=== PATIENT | male | born 1945 | race Caucasian/White ===

== ENCOUNTER 2018-01-31 06:46 | Day surgery (SDC) | payer MEDICARE ==
[2014-10-14 08:40] VITALS: BMI 31.6
[2018-01-31] MEDS ORDERED: Lidocaine 2% MPF (5 ml) Inj ONE (09:08)
[2018-01-31] MEDS ORDERED: Bupivacaine 0.25% 20 ML INJ IJ ONE ×2 (09:08→09:38)
[2018-01-31] MEDS ORDERED: ceFAZolin 1 gm FROZEN Premix 1 GM/50 ML ML IVPB ONE (09:10)
[2018-01-31] MEDS ORDERED: Midazolam 2 MG/2 ML VIAL ONE ×3 (09:19→09:40)
[2018-01-31] MEDS ORDERED: Bacitracin Ointment 30 GM TUBE ONE (09:22)
[2018-01-31] MEDS ORDERED: Etomidate 20 mg/10ml Inj IV ONE (09:23)
[2018-01-31] MEDS ORDERED: Propofol 10 mg/ml Inj (20 ML) ONE (09:41)
[2018-01-31] MEDS ORDERED: HYDROmorphone 0.5 mg/0.5 ml ISec IVP PRN (10:39)
[2018-01-31] MEDS ORDERED: Oxycodone/Acetaminophen 5/325 mg Tab PO PRN ×2 (11:10)
--- NOTE | 2018-01-31 11:16 | PCM.SURG1 ---
Surgeon's Initial Post Op Note - Surgeon's Notes Surgeon: Dr. Mike DPM Soil Sampler: Dr. Susana DPM Type of Anesthesia: General IV, Spinal Anesthesia Administered By: Dr. Carrera Pre-Operative Diagnosis: Left foot Bunion Operative Findings: see dictation. I: pre-operative 20 cc 1:1 2% Lidocaine plain, 0.25% Marcaine plain, intraoperative 10 cc 0.25% Marcaine plain. M: 2-0 Chromic, 3-0 Chromic, 4-0 Nylon Post-Operative Diagnosis: same Operation Performed: Left Foot 1st MTPJ arthroplasty Specimen/Specimens Removed: none Estimated Blood Loss: EBL {In ML}: 5 Blood Products Given: N/A Drains Used: No Drains Post-Op Condition: Good Date of Surgery/Procedure: 01/31/18 Time of Surgery/Procedure: 11:16
[2018-01-31 11:53] VITALS: O2SAT 100
[2018-01-31 13:13] VITALS: BP 157/90; PULSE 77; RESP 18; TEMP 97
--- NOTE | 2018-01-31 13:14 | RAD ---
Date of service: 01/31/2018 PROCEDURE: Left Foot Radiographs. HISTORY: s/o left foot surgery COMPARISON: 10/17/2014 FINDINGS: BONES: Interval resection - 1st metatarsal head. Interval osteotomy 1st proximal phalanx. The medial sesamoid bone is less clearly seen on this exam - it is probably superimposed on the 1st metatarsal head. The lateral sesamoid is laterally positioned relative to the 1st metatarsal head. Periosteal reaction to suggest a osteomyelitis seen. Os peroneum. JOINTS: Osteoarthrosis tibiotalar and mid tarsal bones. An 1st metatarsal-phalangeal joint. SOFT TISSUES: Normal. OTHER FINDINGS: Inferior calcaneal spur . [place]'s tendon insetional enesthesophyte. IMPRESSION: Interval surgical changes 1st digit as above. Other findings as above.
--- NOTE | 2018-02-01 07:34 | OP ---
PROCEDURE DATE: 01/31/2018 PREOPERATIVE DIAGNOSIS: Left foot bunion. POSTOPERATIVE DIAGNOSIS: Left foot bunion. PROCEDURES: 1. Arthroplasty, left first metatarsal. 2. of the proximal phalanx of left hallux. SURGEON: David Martinez DPM OCCUPATIONAL HEALTH PHYSIOTHERAPIST: Jo Meza DPM, PGY-1 ANESTHESIOLOGIST: Dr. Carrera. ANESTHESIA: IV sedation with local. INDICATION: The patient is a 72-year-old male with the above diagnoses. The patient has exhausted all conservative treatment at this time, now requests surgical intervention. The patient signed consent after careful explanation of risks, benefits, complications, alternatives for surgical procedure, no guarantees were given nor implied. The patient was brought into the operating room and placed on the operating room table in a supine position. A time-out was performed for identification of the correct patient and procedure. The patient received a total of 30 mL of 1:1 mixture of 2% lidocaine plain and 0.25% Marcaine plain in a Melendez block and a local block fashion to the left foot . Once local anesthesia was achieved, the left foot was then prepped and draped in a normal sterile manner. PROCEDURE 1: Attention was then brought to the dorsal aspect of the first metatarsal head, left foot, when approximately 6 cm linear and longitudinal incision was made medial and proximal to the tendon of the extensor hallucis longus and involved the contour of the deformity. The incision was deepened through the subcutaneous tissue. Care was taken to identify and retract all vital neurovascular structures. All bleeders were cauterized and ligated as directed. At this time, a linear type capsulotomy was performed over the dorsal aspect of the first metatarsophalangeal joint with the use of a needle tip Bovie. The periosteal and capsular structures were then carefully dissected free of the osseous attachments both medially and laterally exposing the head of the first metatarsal and reached the operative site. Next utilizing a sagittal saw, medial prominence was resected and passed from the operative field. Correction of the deformity was noted to be excellent. Via the original incision, the periosteal and capsular structures were reflected medially and laterally exposing the base of the proximal phalanx to the operative site. Next, utilizing a sagittal saw, both dorsal to plantar proximal osteotomy was created. In the proximal phalanx of the left hallux, a wedge resected and passed from the operative field. A more distal aspect of the bone was closed proximally and compression was noted. The surgical site was then flushed with copious amounts of normal saline solution with hydrogen peroxide. The periosteal and capsular structures were then reapproximated using 2-0 chromic gut. Redundant capsular tissue was resected as necessary. The subcuticular tissues were then reapproximated using 3-0 chromic gut. The skin was then reapproximated and coapted using 4-0 nylon using . The surgical site was then dressed with Xeroform, 4 x 4, gauze, Kerlix. POSTOPERATIVE CONDITION: The patient tolerated the anesthesia and procedure well. He was escorted to the recovery room with vital signs stable and neurovascular status intact to the left foot. The patient will remain nonweightbearing in a surgical shoe with a walker and will follow up with Dr. Martinez in his office. Jo Meza MD David Martinez DPM
== END 2018-01-31 13:18 | disposition left against medical advice (07) ==
LOC: C.SDS 06:46
PROVIDERS: ATTEND Podiatrist Foot Surgery
DX: M21.612 Bunion of left foot (principal)
CPT/HCPCS: 28270; 28296; 73630; 82948; 88304; 97116; 97161; C1713; G0480; G8978; G8979; G8980; J0690; J2250; J2704; J3010

== ENCOUNTER 2018-08-07 07:18 | Day surgery (SDC) | payer MEDICARE, MEDICAID ==
[2018-08-01 08:14] VITALS: BMI 28.8
[2018-08-07 08:21] VITALS: O2SAT 100
[2018-08-07] MEDS ORDERED: ceFAZolin 1 gm in NS 1 GM/100 ML BAG IVPB ONE (08:52)
[2018-08-07] MEDS ORDERED: Bupivacaine HCl 0.25% PF (10 ml) Inj ONE ×3 (08:53→09:41)
[2018-08-07] MEDS ORDERED: Propofol 10 mg/ml Inj (20 ML) ONE (09:09)
[2018-08-07] MEDS ORDERED: Midazolam 2 MG/2 ML VIAL ONE ×2 (09:09→09:55)
[2018-08-07] MEDS: Lidocaine Hydrochloride 10 ML INJ ONE ×2 (09:15→09:20)
[2018-08-07] MEDS ORDERED: Lidocaine Hydrochloride 0 ML INJ ONE (09:45)
[2018-08-07] MEDS ORDERED: Oxycodone/Acetaminophen 5/325 mg Tab PO PRN ×2 (10:38)
--- NOTE | 2018-08-07 10:43 | CP.SDSHP ---
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 Evaluated Today:Candidate for Anesthesia & Procedure: Yes - Date & Time Date: 08/07/18 Time: 10:42 Short Stay Discharge - Short Stay Discharge Admitting Diagnosis/Reason for Visit: HALLUX VALGUS LEFT FOOT Disposition: HOME/ ROUTINE Additional Instructions (Diet, Activity): -Patient in good/stable condition for discharge home -Pt to resume medications per medical reconciliation -Resume regular diet -Please keep dressing clean, dry, & intact to surgical site -Use plastic bag over bandage for showering -Wear post op shoe at all times when ambulating -Call clinic if you see signs of infection (redness, swelling, malodor) -Please make an appointment to see Dr. Mckeon in office/clinic within 1 week for post-op check Progress Note/Discharge Note with Instructions: - Patient evaluated bedside in recovery s/p right foot bunionectomy. - After surgical procedure patient in NAD - (+) Void, (+) Appetite - Capillary refill time <3s and NVS intact. - Patient denies complaints at this time. - Post operative instructions and plan of care explained to patient at length. - Patient. acknowledges verbal understanding. - Patient stable for DC per podiatric surgery
--- NOTE | 2018-08-07 10:46 | PCM.SURG1 ---
Surgeon's Initial Post Op Note - Surgeon's Notes Surgeon: Dr. Mckeon DPM Go Go Dancer: Dr. Delacruz PGY1 Dr. Meza PGY1 Type of Anesthesia: IV Sedation, Local Pre-Operative Diagnosis: Right foot bunion deformity Operative Findings: see dictation. I preop 20cc 1:1 0.25% marcaine plain 2% lidocaine plain, intraop 20cc 0.25% marcaine plain. M 2-0 chromic gut, 3-0 chromic gut, 3-0 nylon. xeroform dsd donnell Post-Operative Diagnosis: same Operation Performed: right hallux bunionectomy with proximal phalanx closing base wedge Specimen/Specimens Removed: right foot bone Estimated Blood Loss: EBL {In ML}: 5 Blood Products Given: N/A Drains Used: No Drains Post-Op Condition: Good Date of Surgery/Procedure: 08/07/18 Time of Surgery/Procedure: 10:46
[2018-08-07 11:59] VITALS: RESP 18; TEMP 97.7
[2018-08-07 13:10] VITALS: BP 108/60; PULSE 58
--- NOTE | 2018-08-08 16:12 | RAD ---
Date of service: 08/07/2018 PROCEDURE: Right Foot Radiographs. HISTORY: s/p right foot surgery COMPARISON: None. FINDINGS: BONES: Osteotomy changes 1st proximal phalanx. JOINTS: Arthrosis 1st metatarsal-phalangeal joint. Tibiotalar joint arthrosis also inferred SOFT TISSUES: Normal. OTHER FINDINGS: Exuberant Inferior calcaneal spur. Exuberant IMPRESSION: Postop changes as above. No periosteal reaction seen to suggest osteomyelitis. Other findings as above.
--- NOTE | 2018-08-08 20:14 | OP ---
PROCEDURE DATE: 08/07/2018 PREOPERATIVE DIAGNOSIS: Right foot bunion deformity. POSTOPERATIVE DIAGNOSIS: Right foot bunion deformity. PROCEDURE: Right foot osteotomy of proximal phalanx of right hallux. SURGEON: David Martinez DPM SERGING MACHINE OPERATOR AUTOMATIC: Jude Bradley MD, PGY-1; Jo Meza MD, PGY-1 TYPE OF ANESTHESIA: IV sedation with local. INDICATIONS: The patient is a 72-year-old male with the above diagnosis. The patient exhausted all conservative treatment at this time and now requested surgical intervention. The patient signed consent after careful explanation of risks, benefits, complications, and alternatives for surgical procedure. No guarantees were given nor implied. PREPARATION: The patient was brought into the operating room and placed on the operating room table in supine position. A time-out was performed for identification of the correct patient and procedure. The patient received a total of 30 mL of 1:1 mixture of 2% lidocaine plain and 0.25% Marcaine plain in a Melendez block and local block fashion to the right foot. Once local anesthesia was achieved, the right foot was then prepped and draped in the normal sterile manner and the procedure began. No tourniquet was used during the procedure. DESCRIPTION OF PROCEDURE: Attention was brought to the dorsal aspect of the first metatarsal head of the right foot where approximately 6 cm linear and longitudinal incision was made medial and proximal to the tendon of the extensor hallucis longus and involving the curvature of the deformity. The incision was deepened with subcutaneous tissue. Care was then taken to identify and protect all vital neurovascular structures. All bleeders were cauterized and ligated as directed. At that time, a linear-type capsulotomy was performed over the dorsal aspect of the first metatarsophalangeal joint. With the use of a needle-tip Bovie, the periosteal and capsular structures were then carefully dissected free of the ostial attachments, both medially and laterally extending to the head of the first metatarsal and reached the operative site. Next, using a sagittal saw, the medial prominence was resected and passed in the operative field. Utilizing a rongeur, all exostoses and osteophytes were removed from the first metatarsal head as well as the base of the proximal phalanx. Correction of the deformity was noted to be excellent. Via the original incision, the periosteal and capsular structures were reflected medially and laterally exposing the base of the proximal phalanx through the operative site. Next, using a sagittal saw an osteotomy was created in the proximal phalanx of the right hallux and a wedge of bone was resected and passed from the operative field. A more distal aspect of the bone was closed proximally and compression was noticed. The surgical site was then flushed with copious amounts of normal saline solution with hydrogen peroxide. Periosteal and capsular structures were then reapproximated using 2-0 chromic gut. The adjoining capsular tissue was resected as necessary. The subcuticular tissues were then reapproximated using 3-0 chromic gut. The skin was then reapproximated and coapted using 3-0 nylon using simple sutures. The surgical site was then dressed with Xeroform, 4 x 4 gauze and Kerlix. POSTOPERATIVE CONDITION: The patient tolerated the anesthesia and procedure well and he was escorted to the recovery room with vital signs stable and neurovascular status intact to the right foot. The patient will remain non-weightbearing in the surgical shoe with a walker and will follow up with Dr. Martinez in his office. JUDE BRADLEY MD David Martinez DPM [facility]
== END 2018-08-07 13:35 | disposition home or self-care (01) ==
LOC: C.SDS 07:18
PROVIDERS: ATTEND Podiatrist Foot Surgery
DX: M21.611 Bunion of right foot (principal); M20.11 Hallux valgus (acquired), right foot; M19.071 Primary osteoarthritis, right ankle and foot; E11.9 Type 2 diabetes mellitus without complications
CPT/HCPCS: 28296; 73630; 82948; 88304; 88311; 97116; 97161; G8978; G8979; G8980; J0690; J2250; J2704; J3010

== ENCOUNTER 2018-09-12 12:47 | Outpatient (CLI) | payer MEDICARE, MEDICAID | END 2018-09-12 12:48 | disposition home or self-care (01) | LOC: C.RADH 12:47 ==